=== PATIENT | female | born 1930 | race Caucasian/White ===

== ENCOUNTER 2017-04-23 15:55 | Inpatient (IN) | payer MEDICARE ==
[~2017-04-23] VITALS: Ht 149.9 cm; Wt 66.2 kg
[~2017-04-23 15:55] MED LIST: ACET500; CELE200; DIPH50; LEVSOD50; PANT40
[2017-05-04] MEDS ORDERED: Vitamin B Comple1 EA PO (09:59)
[2017-05-04] MEDS ORDERED: CALCIUM W/D PO (09:59)
[2017-05-04] MEDS ORDERED: IRBE150 PO (09:59)
[2017-05-04] MEDS ORDERED: CLOP75 PO (10:00)
[2017-05-04] MEDS ORDERED: ATOR20 PO ×2 (10:01→10:06)
[2017-05-04] MEDS ORDERED: ESOM20 PO (10:01)
[2017-05-04] MEDS ORDERED: ERGO400 PO (10:03)
[2017-05-04] MEDS ORDERED: CELE200 PO (10:06)
[2017-05-04] MEDS ORDERED: LEVSOD50 PO (10:06)
[2017-05-04] MEDS ORDERED: ASPI325 PO (10:07)
[2017-05-04] MEDS ORDERED: CHOL10002 PO (10:15)
[2017-05-20] MEDS ORDERED: IRBE75 PO (06:36)
[2017-05-21 04:33] LABS: BASOPHILS ABSOLUTE AUTO 0.02 K/mm3 (0.00-0.23); BASOPHILS PERCENT AUTO 0 % (0-2); EOSINOPHILS PERCENT AUTO 0 % (0-6); Hematocrit 26.9 % (33.0-51.0); Hemoglobin 8.6 g/dL (11.5-16.0); IMMATURE GRAN ABSOLUTE AUTO 0.06 K/mm3 (0.00-0.10); IMMATURE GRAN PERCENT AUTO 1 % (0-1); LYMPHOCYTES ABSOLUTE AUTO 1.12 K/mm3 (0.84-5.20); LYMPHOCYTES PERCENT AUTO 9 % (21-46); MONOCYTES PERCENT AUTO 6 % (4-13); Mean Corpuscular HGB 28.3 pg (26.0-34.0); Mean Corpuscular Volume 89 fL (80-100); Mean Platelet Volume 9.9 fL (9.1-12.4); NEUTROPHILS ABSOLUTE AUTO 10.24 K/mm3 (1.96-9.15); NEUTROPHILS PERCENT AUTO 84 % (41-73); Platelet Count 270 K/mm3 (150-400); RDW Coefficient Variation 13.2 % (11.7-14.2); RDW Standard Deviation 42.4 fL (35.1-46.3); Red Blood Cell Count 3.04 M/mm3 (3.80-5.20); White Blood Cell Count 12.14 K/mm3 (4.00-11.30)
[2017-05-21 04:51] LABS: Anion Gap 7 mmol/L (6-16); Blood Urea Nitrogen 22 mg/dL (8-24); Bun/Creatinine Ratio 26.8 (12.0-20.0); CO2, Blood 27 mmol/L (21-32); Calcium, Blood 8.7 mg/dL (8.5-10.1); Chloride, Blood 102 mmol/L (98-108); Creatinine, Blood 0.82 mg/dL (0.40-1.00); Glomerular Filtration Rate >60 (60-); Glucose, Blood 115 mg/dL (70-99); Potassium, Blood 4.5 mmol/L (3.5-5.5); Sodium, Blood 136 mmol/L (136-145)
[2017-05-21] MEDS ORDERED: Percocet 5-3251 EACH PO (08:58)
[2018-02-22] MEDS ORDERED: CLOP75 PO (13:34)
[2018-02-22] MEDS ORDERED: CELE200 PO (13:35)
[2018-02-22] MEDS ORDERED: CHOL10002 PO (13:36)
== END 2017-05-21 10:40 | disposition home or self-care (01) | DRG 470 ==
LOC: SURS 05-20 06:00 → PRE IP 05-20 07:30 → SURS 05-20 11:25
PROVIDERS: Orthopaedic Surgery
PROC: 0SRB049 Replacement of Left Hip Joint with Ceramic on Polyethylene Synthetic Substitute, Cemented, Open Approach (ICD-10-PCS; principal; 2017-05-20 07:30)
DX: M16.12 Unilateral primary osteoarthritis, left hip (principal); E03.9 Hypothyroidism, unspecified; I10 Essential (primary) hypertension; I25.10 Atherosclerotic heart disease of native coronary artery without angina pectoris; E78.5 Hyperlipidemia, unspecified; K21.9 Gastro-esophageal reflux disease without esophagitis; G89.29 Other chronic pain; I25.2 Old myocardial infarction; Z79.02 Long term (current) use of antithrombotics/antiplatelets; Z79.82 Long term (current) use of aspirin; Z79.899 Other long term (current) drug therapy; Z95.5 Presence of coronary angioplasty implant and graft; Z87.891 Personal history of nicotine dependence
CPT/HCPCS: 36415; 72170; 80048; 85025; 86850; 86900; 86901; 88300; 97110; 97116; 97162; 97530; C1713; C1776; G8978; G8979; G8980; J0171; J0690; J0735; J1100; J1885; J2250; J2370; J2405; J2795; J3010; J7120

== ENCOUNTER 2018-04-07 12:27 | Day surgery (SDC) | payer MEDICARE ==
[~2018-04-07] VITALS: Ht 152.4 cm; Wt 63.0 kg
[~2018-04-07 12:27] MED LIST changes: +ASPI325 PO; +ATOR20 PO; +CALCIUM W/D PO; +CELE200 PO; +CHOL10002 PO; +CLOP75 PO; +ERGO400 PO; +ESOM20 PO; +IRBE150 PO; +IRBE75 PO; +LEVSOD50 PO; +Percocet 5-3251 EACH PO; +Vitamin B Comple1 EA PO
[2018-04-08 04:20] LABS: BASOPHILS ABSOLUTE AUTO 0.08 K/mm3 (0.00-0.23); BASOPHILS PERCENT AUTO 1 % (0-2); EOSINOPHILS ABSOLUTE AUTO 0.08 K/mm3 (0.00-0.68); EOSINOPHILS PERCENT AUTO 1 % (0-6); Hematocrit 29.5 % (33.0-51.0); Hemoglobin 9.1 g/dL (11.5-16.0); IMMATURE GRAN ABSOLUTE AUTO 0.04 K/mm3 (0.00-0.10); IMMATURE GRAN PERCENT AUTO 0 % (0-1); LYMPHOCYTES ABSOLUTE AUTO 2.25 K/mm3 (0.84-5.20); LYMPHOCYTES PERCENT AUTO 20 % (21-46); MONOCYTES ABSOLUTE AUTO 0.92 K/mm3 (0.16-1.47); MONOCYTES PERCENT AUTO 8 % (4-13); Mean Corpuscular HGB 27.1 pg (26.0-34.0); Mean Corpuscular HGB Conc 30.8 g/dL (31.5-36.5); Mean Corpuscular Volume 88 fL (80-100); Mean Platelet Volume 9.6 fL (9.1-12.4); NEUTROPHILS PERCENT AUTO 70 % (41-73); Platelet Count 316 K/mm3 (150-400); RDW Coefficient Variation 13.8 % (11.7-14.2); Red Blood Cell Count 3.36 M/mm3 (3.80-5.20); White Blood Cell Count 11.37 K/mm3 (4.00-11.30)
[2018-04-08 04:37] LABS: Anion Gap 6 mmol/L (6-16); Blood Urea Nitrogen 19 mg/dL (8-24); Bun/Creatinine Ratio 22.1 (12.0-20.0); CO2, Blood 29 mmol/L (21-32); Calcium, Blood 8.4 mg/dL (8.5-10.1); Chloride, Blood 104 mmol/L (98-108); Creatinine, Blood 0.86 mg/dL (0.40-1.00); Glomerular Filtration Rate >60 (60-); Glucose, Blood 103 mg/dL (70-99); Potassium, Blood 4.3 mmol/L (3.5-5.5); Sodium, Blood 139 mmol/L (136-145)
[2018-04-08] MEDS ORDERED: Percocet 5-3251 EACH PO (12:08)
== END 2018-04-08 16:30 | disposition home or self-care (01) ==
LOC: ORSCMMR 12:27 → ORD 14:30 → ORSCMMR 14:30 → SURS 20:35 → ORSCMMR 04-08 16:30
PROVIDERS: Orthopaedic Surgery
PROC: 0SRC0J9 Replacement of Right Knee Joint with Synthetic Substitute, Cemented, Open Approach (ICD-10-PCS; principal; 2018-04-07 14:30)
DX: M17.11 Unilateral primary osteoarthritis, right knee (principal); I10 Essential (primary) hypertension; I25.10 Atherosclerotic heart disease of native coronary artery without angina pectoris; Z87.891 Personal history of nicotine dependence; Z79.899 Other long term (current) drug therapy; Z79.82 Long term (current) use of aspirin
CPT/HCPCS: 36415; 73560-RT; 80048; 85025; 86850; 86900; 86901; 88300; 97110; 97116; 97162; 97530; C1713; C1776; G8978; G8979; J0171; J0690; J0735; J1885; J2795; J3010; J7120

== ENCOUNTER 2018-05-17 08:45 | Day surgery (SDC) | payer MEDICARE ==
[~2018-05-17] VITALS: Ht 152.4 cm; Wt 62.6 kg
[~2018-05-17 08:45] MED LIST changes: +HYDR1TAB94 PO; +OLME20 PO
--- NOTE | 2018-05-17 09:42 | NUR ---
Ambulatory in Day Surgery Surgical site prepped with 2% Chlorhexidine cloth wipe. History, Chart, Medications and Allergies reviewed before start of procedure.Lungs clear T/O to Auscultation. Patient confirms NPO status and agrees with scheduled surgery. PT BELONGIGNS PLACED UNDER BED.
--- NOTE | 2018-05-17 11:14 | NUR ---
05/17/18 1114 Su Paige PROCEDURE PERFORMED ON [facility]. NO ABX. NO PAS STOCKINGS.
--- NOTE | 2018-05-17 12:18 | NUR ---
REPORT FROM MO Roberts RN. PT VSS. ASKING FOR FOOD. PT SAT UP AT SIDE OF BEDD DANGLING AND EATING FOOD AND FLUIDS WITHOUT DIFFICULTY. RECEIVED TWO PERCOCET. WILL CONTINUE TO MONITOR.
--- NOTE | 2018-05-17 13:10 | NUR ---
Patient up to Ambulate independently. Gait steady. Discharged via wheelchair to private car for ride home. Patient States Post-Procedure ride home has been arranged. ALL BELONGIGNS RETURNED TO PATIENT.
== END 2018-05-17 22:51 | disposition home or self-care (01) ==
LOC: ORSCMMR 08:45
PROVIDERS: Orthopaedic Surgery
PROC: 0SNCXZZ Release Right Knee Joint, External Approach (ICD-10-PCS; principal; 2018-05-17 10:45)
DX: M24.60 Ankylosis, unspecified joint (principal); Z96.651 Presence of right artificial knee joint; I10 Essential (primary) hypertension; E03.9 Hypothyroidism, unspecified; I25.2 Old myocardial infarction; Z87.891 Personal history of nicotine dependence; Z79.01 Long term (current) use of anticoagulants; Z79.899 Other long term (current) drug therapy
CPT/HCPCS: 73560-RT; J2250; J3010; J7120